=== PATIENT | male | born 1990 | race American Indian/Alaskan Native ===

== ENCOUNTER 2018-07-29 09:26 | Emergency (ER) | payer SELFPAY ==
[2018-07-29] MEDS ORDERED: BABY ASPIRIN PO ONE (10:44)
[2018-07-29] MEDS ORDERED: ZOFRAN ODT PO ONE (10:45)
[2018-07-29] MEDS ORDERED: NORCO 10/325 PO ONE (10:45)
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
[2018-07-29 11:10] LABS: Basophils % (Auto) 0.8 % (0.0-1.8); Eosinophils % (Auto) 1.2 % (0.0-4.3); Hematocrit 40.3 % (35.5-45.6); Hemoglobin 13.5 gm/dl (11.8-15.2); Lymphocytes # (Auto) 1.1 K/mm3 (1.2-5.4); Lymphocytes % (Auto) 36.2 % (13.4-35.0); Mean Corpuscular HGB Conc 34 % (32-34); Mean Corpuscular Volume 94 fl (84-94); Monocytes # (Auto) 0.5 K/mm3 (0.0-0.8); Monocytes % (Auto) 15.4 % (0.0-7.3); Red Blood Count 4.31 M/mm3 (3.65-5.03); Red Cell Distribution Width 13.2 % (13.2-15.2)
[2018-07-29 11:18] VITALS: BP 128/86
[2018-07-29 11:19] LABS: INR 1.02 (0.87-1.13)
[2018-07-29 11:27] LABS: Partial Thromboplastin Time 32.4 Sec. (24.2-36.6)
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
[2018-07-29 11:55] LABS: Platelet Count 83 K/mm3 (140-440)
[2018-07-29 12:56] LABS: Alanine Aminotransferase 9 units/L (7-56); Albumin 4.3 g/dL (3.9-5); BUN/Creatinine Ratio 11; Blood Urea Nitrogen 8 mg/dL (9-20); Calcium 9.1 mg/dL (8.4-10.2); Hemolysis Index 22
== END 2018-07-29 16:53 | disposition home or self-care (01) ==
LOC: ED 09:26
DX: K02.9 Dental caries, unspecified (principal); R07.9 Chest pain, unspecified; R10.13 Epigastric pain; F17.200 Nicotine dependence, unspecified, uncomplicated; F12.10 Cannabis abuse, uncomplicated
CPT/HCPCS: 36415; 74022; 80053; 83690; 84484; 85025; 85610; 85730; 93005; 93010; Q0162